=== PATIENT | female | born 1945 | race Caucasian/White ===

== ENCOUNTER 2020-12-16 13:22 | Outpatient (CLI) | payer MEDICARE ==
[~2020-12-16 13:22] MED LIST: Iopamidol 370 76% 100 ML VIAL ONE
== END 2020-12-16 13:23 | disposition home or self-care (01) ==
LOC: CT 13:22
PROVIDERS: ATTEND Family Medicine
DX: H92.01 Otalgia, right ear (principal); H60.399 Other infective otitis externa, unspecified ear; T14.8XXA Other injury of unspecified body region, initial encounter
CPT/HCPCS: 70470; 82565; Q9967

== ENCOUNTER 2023-07-12 12:49 | Outpatient (CLI) | payer MEDICARE | END 2023-07-12 12:50 | disposition home or self-care (01) | LOC: CT 12:49 | PROVIDERS: ATTEND Orthopaedic Surgery | DX: M17.11 Unilateral primary osteoarthritis, right knee (principal) ==

== ENCOUNTER 2023-07-19 10:54 | Outpatient (CLI) | payer MEDICARE ==
[2023-07-19 12:24] LABS: Bilirubin Neg (Negative); Blood, Urine Negative (Negative); Clarity Slightly Cloudy (Clear); Glucose, Urine (Dipstick) Normal (Negative); Ketone, Urine Negative (Negative); Leukocyte 500 (Negative); Nitrite Negative (Negative); Protein, Urine (Dipstick) Negative (Neg-Trace); Urobilinogen Normal mg/dL (Less than 2)
[2023-07-19 12:27] LABS: #Basophils 0.02 10x3/uL (0.0-0.2); #Eosinphils 0.24 10x3/uL (0.0-0.5); #Monocytes 0.52 10x3/uL (0.0-1.1); #Neutrophils 6.63 10x3/uL (1.5-8.4); %Basophils 0.2 % (0.0-2.0); %Eosinophils 2.7 % (0.0-6.0); %Lymphocytes 16.2 % (18.0-47.0); %Monocytes 5.8 % (0.0-10.0); %Neutrophils 74.3 % (40.0-75.0); Hematocrit 41.2 % (34.9-44.5); Hemoglobin 13.9 g/dL (12.0-15.5); Mean Corpuscular HGB CONC 33.7 g/dL (32.0-36.0); Mean Corpuscular Hemoglobin 30.5 pg (27.0-33.0); Mean Corpuscular Volume 90.5 fL (81.6-98.3); Platelet Count 264 10x3/uL (150-450); RBC Distribution Width 12.5 % (11.5-14.5); Red Blood Cell (RBC) Count 4.55 10x6/uL (3.90-5.03); White Blood Cell (WBC) Count 8.9 10x3/uL (3.5-10.5)
[2023-07-19 13:17] LABS: Prothrombin Time 10.4 sec (9.5-12.1)
[2023-07-19 13:24] LABS: Anion Gap 15 mmol/L (10-20); BUN (Urea Nitrogen) 15 mg/dL (9.8-20.1); Calc. Creatinine Clearance 0 mL/min (70-130); Calcium 10.1 mg/dL (7.8-10.44); Carbon Dioxide 25 mmol/L (23-31); Chloride 102 mmol/L (98-107); Estimated GFR 80; Glucose 101 mg/dL (83-110); Potassium 4.1 mmol/L (3.5-5.1); Sodium 138 mmol/L (136-145)
== END 2023-07-19 10:55 | disposition home or self-care (01) ==
LOC: LABBT 10:54
PROVIDERS: ATTEND Orthopaedic Surgery
DX: Z01.818 Encounter for other preprocedural examination (principal); M17.11 Unilateral primary osteoarthritis, right knee
CPT/HCPCS: 71046; 80048; 81003; 85025; 85610; 87081; 93005; 93010

== ENCOUNTER 2023-07-24 05:31 | Observation (INO) | payer MEDICARE ==
[2023-07-19 11:35] VITALS: BMI 25.8
[2023-07-24] MEDS ORDERED: Bupivacaine PF 0.5% 30 ML VIAL ONE ×2 (06:26→06:41)
[2023-07-24] MEDS ORDERED: CEFAZOLIN 2 GM VIAL ONE (06:38)
[2023-07-24] MEDS ORDERED: Sodium Chloride 0.9% 100 ML ONE ×2 (06:38→06:40)
[2023-07-24] MEDS ORDERED: Tranexamic Acid 1,000 MG/10 ML VIAL ONE ×2 (06:38→09:52)
[2023-07-24] MEDS ORDERED: Vancomycin 1 GM/200 ML (FROZEN) BAG ONE (06:38)
[2023-07-24] MEDS ORDERED: EPINEPHrine 1 MG/ML VIAL ONE (06:40)
[2023-07-24] MEDS ORDERED: fentaNYL 50 mcg/mL 1 mL Vial ONE (06:41)
[2023-07-24] MEDS ORDERED: Midazolam HCl 2 mg/2 ml Vial ONE (06:41)
[2023-07-24] MEDS ORDERED: Lidocaine 1% (PF) 30 ML VIAL ONE (06:41)
[2023-07-24] MEDS ORDERED: PROPOFOL 20 ML ONE (07:04)
[2023-07-24] MEDS ORDERED: Lidocaine 1% PF 5 ML VIAL ONE (07:05)
[2023-07-24] MEDS ORDERED: Ondansetron PF 4 MG/2 ML Vial ONE (07:05)
[2023-07-24] MEDS ORDERED: Hydrocortisone Sod Succ/PF 100 mg/2 ml Vial ONE (07:05)
[2023-07-24] MEDS ORDERED: Dexamethasone 4 mg/ml Vial ONE (07:05)
[2023-07-24] MEDS ORDERED: Promethazine HCl 25 MG/ML VIAL IM PRN ×3 (07:18→09:25)
[2023-07-24] MEDS ORDERED: Meperidine HCl/PF 25 MG/ML VIAL SLOW IVP PRN (07:18)
[2023-07-24] MEDS ORDERED: Ondansetron HCl/PF 4 MG/2 ML Vial IVP PRN (07:18)
[2023-07-24] MEDS ORDERED: fentaNYL 50 mcg/mL 1 mL Vial SLOW IVP PRN (07:27)
[2023-07-24] MEDS ORDERED: Ropivacaine 0.2% 550 ML 550 ML NERVE BLCK SCH (07:30)
[2023-07-24] MEDS ORDERED: Ondansetron PF 4 MG/2 ML Vial IVP PRN ×2 (07:30→09:25)
[2023-07-24] MEDS ORDERED: HYDROcodone/Acetaminophen 10/325 mg Tablet PO PRN ×2 (07:30)
[2023-07-24] MEDS ORDERED: Zolpidem Tartrate 5 MG TAB PO PRN ×2 (07:30→09:25)
[2023-07-24] MEDS ORDERED: traMADol HCl 50 MG TAB PO PRN ×2 (07:30)
[2023-07-24] MEDS ORDERED: ePHEDrine Sulfate 50 MG/10 ML VIAL ONE (07:32)
[2023-07-24] MEDS ORDERED: diphenhydrAMINE 25 MG CAP PO PRN (09:25)
[2023-07-24] MEDS ORDERED: Acetaminophen 325 MG TAB PO PRN (09:25)
[2023-07-24] MEDS ORDERED: Tranexamic Acid 1,000 MG in Sodium Chloride 0.9% 100 ML IVPB SCH (09:30)
[2023-07-24] MEDS: Ketorolac Tromethamine 30 MG (1 mL) VIAL IVP SCH (12:28)
[2023-07-24] MEDS: Sodium Chloride 0.9% 1,000 ML IV SCH (12:29)
[2023-07-24] MEDS: CEFAZOLIN 2 GM in Sodium Chloride 0.9% 100 ML IVPB SCH (14:27)
[2023-07-24] MEDS: Vancomycin (BATCH) 1.5 GM in Premix 1 BAG IVPB SCH (17:41)
[2023-07-24] MEDS: Ferrous Gluconate 324 MG TAB PO SCH (20:39)
[2023-07-24] MEDS: Aspirin 81 mg Enteric Coated Tablet PO SCH (20:39)
[2023-07-24] MEDS: Senokot S 8.6-50 MG TAB PO SCH (20:40)
[2023-07-24] MEDS: Azelastine 137 MCG/NASAL Spray 30 ML NS SCH (20:49)
[2023-07-25 05:05] LABS: Hematocrit 28.6 % (36.0-47.0); Hemoglobin 9.5 g/dL (12.0-16.0); Mean Corpuscular HGB CONC 33.2 g/dL (32.0-36.0); Mean Corpuscular Hemoglobin 30.1 pg (27.0-31.0); Mean Corpuscular Volume 90.5 fL (78.0-98.0); Mean Platelet Volume 10.2 fL (7.4-10.4); Platelet Count 176 10x3/uL (130-400); RBC Distribution Width 12.6 % (11.5-14.5); Red Blood Cell (RBC) Count 3.16 mill/uL (4.20-5.40)
[2023-07-25 08:33] VITALS: BP 126/72; TEMP 98.2
[2023-07-25] MEDS ORDERED: Multivitamin W/ Minerals 1 TAB PO SCH (09:00)
[2023-07-25] MEDS: Multivitamin W/ Minerals 1 TAB PO SCH (10:13)
[2023-07-25] MEDS: Hydrochlorothiazide 25 MG TAB PO SCH (10:14)
[2023-07-25] MEDS: CeleCOXIB 100 MG CAP PO SCH (10:14)
[2023-07-25] MEDS: Amlodipine 10 MG TAB PO SCH (10:15)
[2023-07-25] MEDS: Fluticasone Propionate Nasal Spray 16 gm Bottle NASAL SCH (10:15)
[2023-07-25] MEDS: Lisinopril 20 MG TAB PO SCH (10:26)
[2023-07-25] MEDS ORDERED: Rosuvastatin 10 MG TAB PO SCH (21:00)
== END 2023-07-25 12:14 | disposition home or self-care (01) ==
LOC: SDC 05:31 → SURG A 10:46
PROVIDERS: ADMIT Orthopaedic Surgery; ATTEND Orthopaedic Surgery
PROC: 3E0T3BZ Introduction of Anesthetic Agent into Peripheral Nerves and Plexi, Percutaneous Approach (ICD-10-PCS; principal; 2023-07-24)
PROC: 0SRC0JZ Replacement of Right Knee Joint with Synthetic Substitute, Open Approach (ICD-10-PCS; 2023-07-24)
DX: M17.11 Unilateral primary osteoarthritis, right knee (principal); I10 Essential (primary) hypertension; E78.5 Hyperlipidemia, unspecified; Z90.710 Acquired absence of both cervix and uterus; Z79.899 Other long term (current) drug therapy
CPT/HCPCS: 27447; 64447; 85027; 97110 ×2; 97116 ×2; 97530 ×2; A4306; C1713; C1776; C1889; J0171; J0665; J1100; J1720; J1885 ×2; J2001; J2250; J2405; J2704; J2795; J3010; J3370 ×2; J3490; 36415